=== PATIENT | female | born 1955 | race Caucasian/White ===

== ENCOUNTER → 2020-07-12 09:05 | Outpatient (CLI) | payer OTHER, SELFPAY ==
--- NOTE | 2020-07-12 | DI.RAD.S_ITS ---
PROCEDURE: FL UPPER GI W AIR INDICATIONS: Gastro-esophageal reflux disease without esophagit COMPARISON: None. FINDINGS: KUB: Preprocedural fox raiser film demonstrates a normal bowel gas pattern. No suspicious abdominal calcifications. Visualized solid organ contours appear normal. Bony structures appear unremarkable. Esophagus: Esophageal mucosa is normal on air-contrast views. On single-contrast views, there is mildly decreased esophageal peristalsis. No strictures, extrinsic mass effects, or diverticula. Stomach: There is irregularity of the proximal stomach presumably postsurgical related to reported history of Demetris fundoplication. There is a possible small hiatal hernia. Spontaneous gastroesophageal reflux is observed to the level of the middle 3rd of the esophagus No mucosal masses or ulcers. Pylorus and duodenal bulb appear normal in morphology. Duodenal folds are normal in thickness as well. IMPRESSION: Presumed postsurgical changes related to history of Demetris fundoplication. Possible small hiatal hernia, versus postoperative appearance. Gastroesophageal reflux, which is observed to the level of the middle 3rd of the esophagus Dictated by: Severino Saha M.D. on 07/12/2020 at 10:13 Approved by: Severino Saha M.D. on 07/12/2020 at 10:16
== END ==
PROVIDERS: PCP Physician Assistant Medical; Referring Provider Physician Assistant Medical; Visit Provider Surgery
DX: K21.9 Gastro-esophageal reflux disease without esophagitis (principal)
CPT/HCPCS: 74246

== ENCOUNTER → 2023-05-01 09:34 | Outpatient (CLI) | payer OTHER, SELFPAY ==
--- NOTE | 2023-05-01 | DI.MRI.S_ITS ---
PROCEDURE: MR ABDOMEN WO/W CON INDICATIONS: GENERALIZED ABDOMINAL PAIN/INTRA ABDOMINAL VARICES TECHNIQUE: Coronal HASTE, axial 2D FLASH in- and [id number]; axial breath-hold T2 FSE. Dynamic axial VIBE during the administration of contrast; post-contrast coronal VIBE or 2D FLASH with fat saturation from the hepatic dome to the iliac crests. Optional diffusion weighted imaging and ADC may be performed. COMPARISON: None. FINDINGS: Image quality: Excellent. Lung bases: No basal pleural effusions. Heart size is normal. Liver: Moderate to marked hepatic steatosis (18% calculated). Gallbladder and biliary tree: Cholecystectomy. No biliary dilation. Spleen: Normal size. Pancreas: No ductal dilation. Adrenal glands: No adrenal nodules. Kidneys: No hydronephrosis. No solid mass. No complex renal cysts which requires follow-up. Nodes and vessels: No retroperitoneal or mesenteric adenopathy by size criteria. Aorta and inferior vena cava are normal in size. Bowel and peritoneum: Unenhanced bowel loops are normal in caliber. No free fluid. Demetris fundoplication appears across the esophageal hiatus. Bones and soft tissues: No ventral hernias. Bone marrow is normal in overall signal. IMPRESSION: Suspect slipped Demetris fundoplication. This can be confirmed fluoroscopic esophagram. At least moderate hepatic steatosis. Correlate with LFTs. In the absence of alcohol use or other confounding factors, elevated LFTs may indicate non-alcoholic steatohepatitis (BLISS). Dictated by: Josue Albrecht M.D. on 05/01/2023 at 13:24 Approved by: Josue Albrecht M.D. on 05/01/2023 at 13:31
--- NOTE | 2023-05-01 | DI.CT.S_ITS ---
PROCEDURE: CT ABDOMEN PELVIS W CON INDICATIONS: GENERALIZED ABDOMINAL PAIN/INTRA ABDOMINAL VARICES TECHNIQUE: After the administration of oral and intravenous contrast, axial sections were acquired from the lung bases to the pubic symphysis. Coronal and sagittal reformats were performed. For radiation dose reduction, the following was used: automated exposure control, adjustment of mA and/or kV according to patient size. COMPARISON:[facility], MR, MR ABDOMEN WO/W CON, 05/01/2023, 10:38. FINDINGS: Image quality: Excellent. Lung bases: Unremarkable. Heart: No significant findings. ABDOMEN: Liver: Unremarkable. Specifically if there is fatty infiltration it is below the threshold identifiable by CT scanning. Please refer to MR report from today. Gallbladder: Previously resected. Biliary ducts: Unremarkable. Pancreas: Unremarkable. Spleen: Unremarkable. Adrenal Glands: Unremarkable. Kidneys and Ureters: Unremarkable. Stomach and Bowel: Stomach, small bowel loops, and colon are unremarkable. There are several surgical clips at the esophageal hiatus, and what appears to be a small hiatal hernia extends superiorly. As was seen during MR scanning same day this is suspicious for a slipped fundoplication. Generalized colonic obstipation. Peritoneum: No abnormal intraperitoneal fluid. No free air. Ventral Wall: No hernia. Abdominal Nodes: No retroperitoneal or mesenteric adenopathy by size criteria. Vessels: Aorta and inferior vena cava are normal in size. PELVIS: Pelvic Organs: Apparent prior hysterectomy.. Bladder: Unremarkable. Pelvic Nodes: No enlarged lymph nodes. Miscellaneous: No inguinal hernias are seen. No CT evidence of appendicitis. Generalized colonic obstipation. Bones: Unremarkable. IMPRESSION: No source for reported abdominal pain is found other than generalized colonic obstipation. Possible slipped knee sin fundoplication given the pattern of surgical clips and the presence of a small sliding hiatal hernia in that area. Apparent prior hysterectomy, no evidence of appendicitis. A normal or abnormal appendix could not be located at the right lower quadrant. Dictated by: Miguelangel Vasquez M.D. on 05/01/2023 at 16:44 Approved by: Miguelangel Vasquez M.D. on 05/01/2023 at 16:55
== END ==
PROVIDERS: PCP Physician Assistant Medical; Referring Provider Physician Assistant; Visit Provider Physician Assistant
DX: I86.8 Varicose veins of other specified sites (principal); R10.84 Generalized abdominal pain; K59.00 Constipation, unspecified; K44.9 Diaphragmatic hernia without obstruction or gangrene
CPT/HCPCS: 74177; 74183; A9579

== ENCOUNTER → 2024-09-06 09:55 | Outpatient (CLI) | payer OTHER, SELFPAY ==
[2024-09-06 11:27] LABS: Add Manual Diff / Slide Review NO; Basophils Absolute Auto 100 /uL (0-100); Basophils Percent Auto 0.6 % (0-2); Eosinophils Absolute Auto 400 /uL (0-450); Eosinophils Percent Auto 4.8 % (2-4); Hematocrit 36.2 % (36-46); Hemoglobin 12.2 g/dL (12.0-16.0); Lymphocytes Absolute Auto 2600 /uL (1100-4500); Lymphocytes Percent Auto 28.3 % (25-40); Mean Corpuscular HGB Conc 33.6 % (30-36); Mean Corpuscular Hemoglobin 30.9 PG (26-34); Mean Corpuscular Volume 91.7 fL (80-100); Monocytes Absolute Auto 700 /uL (0-900); Monocytes Percent Auto 7.6 % (3-14); Neutrophils Absolute Auto 5500 /uL (1500-7000); Neutrophils Percent Auto 58.7 % (50-75); Platelet Count 336 X10^3/uL (150-400); Red Blood Cell Count 3.94 X10^6/uL (4.0-5.2); Red Cell Distribution Width 13.5 % (11.6-14.8); White Blood Cell Count 9.3 X10^3/uL (4.5-11.0)
[2024-09-06 11:43] LABS: Alanine Aminotransferase 25 IU/L (<35); Albumin 4.5 g/dL (3.5-5.0); Albumin Globulin Ratio 1.8 (1.0-2.8); Alkaline Phosphatase 86 U/L (38-126); Aspartate Aminotransferase 31 IU/L (14-36); BUN Creatinine Ratio 17.3 (6-22); Bilirubin Total 0.5 mg/dL (0.2-1.3); Blood Urea Nitrogen 17 mg/dL (7-17); Carbon Dioxide 28 mmol/L (22-32); Chloride 104 mmol/L (98-107); Cholesterol 180 mg/dL (140-199); Estimated Glomerular Filt Rate > 60 mL/min (>60); Globulin 2.5 g/dL (1.7-4.1); Glucose 105 mg/dL (80-110); HDL Cholesterol 49 mg/dL (40-60); HEMOLYSIS < 15 (0-50); LDL Cholesterol Calculated 70 mg/dL (<100); Potassium 4.7 mmol/L (3.4-5.1); Sodium 138 mmol/L (137-145); Triglycerides 305 mg/dL (35-150)
[2024-09-06 12:10] LABS: TSH w/ Reflex to FT4 1.53 uIU/mL (0.47-4.68)
== END ==
PROVIDERS: PCP Physician Assistant Medical; Referring Provider Psychiatry & Neurology Psychiatry; Visit Provider Psychiatry & Neurology Psychiatry
DX: F31.81 Bipolar II disorder (principal); Z79.899 Other long term (current) drug therapy
CPT/HCPCS: 36415; 80053; 80061; 84443; 85025